=== PATIENT | female | born 1975 | race Caucasian/White ===

== ENCOUNTER 2016-05-24 11:49 | Emergency (ER) | payer OTHER | END 2016-05-24 12:25 | disposition home or self-care (01) | LOC: ER 11:49 | DX: M79.651 Pain in right thigh (principal); I10 Essential (primary) hypertension; Z79.899 Other long term (current) drug therapy; Z88.8 Allergy status to other drugs, medicaments and biological substances ==

== ENCOUNTER 2016-07-01 21:50 | Emergency (ER) | payer OTHER | END 2016-07-02 01:16 | disposition home or self-care (01) | LOC: ER 21:50 | DX: S83.91XA Sprain of unspecified site of right knee, initial encounter (principal); F19.10 Other psychoactive substance abuse, uncomplicated; I10 Essential (primary) hypertension; F17.200 Nicotine dependence, unspecified, uncomplicated; Z79.899 Other long term (current) drug therapy; Z88.8 Allergy status to other drugs, medicaments and biological substances; W22.8XXA Striking against or struck by other objects, initial encounter | CPT/HCPCS: 36415; 80307; 96360; G0480 ==